=== PATIENT | female | born 1980 | race Caucasian/White ===

== ENCOUNTER 2018-11-13 14:05 | Emergency (ER) | payer SELFPAY ==
[~2018-11-13 14:05] MED LIST: ACE3 PO; ACET-3017 PO; FAMO20TA28 PO; FERR-1 PO; IBU800 PO; IBUP400T13 PO; KET10 PO; LOR1 PO; OLA5 PO; PAR20 PO; PENI-24 PO; PHEN200T32 PO; PREN-67 PO; PROM-110 PO; SULF-198 PO; SUMA25TA26 PO; VENL150C61 PO
[2018-11-13 14:17] VITALS: BP 127/70
--- NOTE | 2018-11-13 14:17 | ER Report ---
History and Physical Time Seen By MD: 14:17 HPI/ROS CHIEF COMPLAINT: Cold symptoms HISTORY OF PRESENT ILLNESS: This is a 38-year-old female presents to the emergency department for flulike symptoms. Patient states that she developed aches, chills, fevers and a mild nonproductive cough yesterday. Gradually getting worse through today. No nausea or vomiting. No diarrhea. No chest pain or shortness of breath. No rashes. REVIEW OF SYSTEMS: Constitutional: As above. Eyes: No discharge. ENT: No sore throat. Cardiovascular: No chest pain, no palpitations. Respiratory: As above. Gastrointestinal: No abdominal pain, no vomiting. Genitourinary: No hematuria. Musculoskeletal: No back pain. Skin: No rashes. Neurological: No headache. Allergies: Coded Allergies: No Known Drug Allergies (Unverified , 10/17/16) Home Meds Active Scripts Oseltamivir Phosphate (TAMIFLU) 75 Mg Cap, 75 MG PO BID for 5 Days, #10 CAP 0 Refills Prov:ANASTASIA STEWART [facility]- 11/13/18 Discontinued Scripts Phenazopyridine Hcl (PHENAZOPYRIDINE HCL) 200 Mg Tablet, 200 MG PO TID PRN for PAIN, #12 TAB Prov:LARISSA FOY [facility] 10/17/16 Sulfamethoxazole/Trimet 800-160 Mg Tab (BACTRIM DS TABLET) 1 Each Tablet, 1 TAB PO Q12H, #14 TAB Prov:LARISSA FOY [facility] 10/17/16 Past Medical/Surgical History The patient has a past medical and surgical history of bipolar disorder, depression, anxiety, self-mutilation, tubal ligation. Reviewed Nurses Notes: Yes Hx Smoking: No Smoking Status: Never Smoker Exposure to Second Hand Smoke?: No Hx Substance Use Disorder: No Hx Alcohol Use: Yes (40 OZ WEEKLY) Constitutional Vital Sign - Last 24 Hours 11/13/18 14:17 Temp 97.1 Pulse 100 Resp 14 B/P (MAP) 127/70 Pulse Ox 94 O2 Delivery Room Air Physical Exam General Appearance: The patient is alert, has no immediate need for airway protection and no signs of toxicity. Eyes: Pupils equal and round no pallor or injection. ENT, Mouth: Mucous membranes are moist. Erythema to the posterior oropharynx. No exudates or tonsillar hypertrophy. Respiratory: There are no retractions, lungs are clear to auscultation. Cardiovascular: Regular rate and rhythm. Gastrointestinal: Abdomen is soft and non tender, no masses, bowel sounds normal. Skin: Warm and dry, no rashes. Musculoskeletal: Neck is supple non tender. Extremities are nontender, nonswollen and have full range of motion. DIFFERENTIAL DIAGNOSIS: After history and physical exam differential diagnosis was considered for viral syndrome, bronchitis, influenza, pneumonia. Medical Decision Making Data Points Laboratory Hematology Test 11/13/18 14:26 Influenza Virus Type A (PCR) Positive (NEGATIVE) Influenza Virus Type B (PCR) Negative (NEGATIVE) Chemistry Test 11/13/18 14:26 Influenza Virus Type A (PCR) Positive (NEGATIVE) Influenza Virus Type B (PCR) Negative (NEGATIVE) ED Course/Re-evaluation ED Course The patient was admitted to room. A history and physical were obtained. Differential diagnoses were considered. Patient was positive for influenza A, a prescription for Tamiflu sent to the patient's pharmacy. Patient was instructed to take ibuprofen or Tylenol as needed for aches and pains. Patient had no other questions or concerns, was in agreement with plan of care and discharged home. Decision to Disposition Date: Nov 13, 2018 Decision to Disposition Time: 15:36 Depart Departure Latest Vital Signs Vital Signs Date Time Temp Pulse Resp B/P (MAP) Pulse Ox O2 Delivery O2 Flow Rate FiO2 11/13/18 14:17 97.1 100 14 127/70 94 Room Air Impression: Primary Impression: Influenza A Condition: Improved Disposition: HOME OR SELF-CARE New Scripts Oseltamivir Phosphate (TAMIFLU) 75 Mg Cap 75 MG PO BID for 5 Days, #10 CAP 0 Refills Prov: ANASTASIA STEWART 11/13/18 Departure Forms: ER Transition Record, Medications Reconciliation, Off Work/School Form, School or Work Release?: Work Number of days to be released: 3 Patient Portal Information Patient Instructions: Influenza (ED) Additional Instructions: Drink plenty of water. Get plenty of rest. Take Tamiflu as prescribed. Follow-up with your primary care provider within one week for reevaluation. Take ibuprofen and Tylenol as needed for aches and pains. Return to ER for any concerns or worsening symptoms. ANASTASIA STEWART-BC Nov 13, 2018 14:17
[2018-11-13] MEDS ORDERED: OSE75 PO (15:40)
== END 2018-11-13 16:04 | disposition home or self-care (01) ==
LOC: ER 15:02
DX: J11.1 Influenza due to unidentified influenza virus with other respiratory manifestations (principal)
CPT/HCPCS: 87502; 99282

== ENCOUNTER 2018-11-22 18:59 | Emergency (ER) | payer SELFPAY ==
[~2018-11-22 18:59] MED LIST changes: +OSE75 PO
--- NOTE | 2018-11-22 19:03 | ER Report ---
History and Physical Time Seen By MD: 19:03 HPI/ROS CHIEF COMPLAINT: Right upper cheek pain HISTORY OF PRESENT ILLNESS: This is a 38-year-old female who presents to the emergency department for right upper cheek pain. Patient states that yesterday she began to develop some pain in her right cheek, increased in intensity today. She has had some nasal discharge, she also states she's had low-grade fevers at home subjectively, she denies nausea or vomiting. No chest pain or shortness of breath. No visual changes. No rashes. No neck stiffness. REVIEW OF SYSTEMS: Constitutional: As above. ENT: As above. Respiratory: No cough, no dyspnea. Cardiovascular: No chest pain, no palpitations. Gastrointestinal: No vomiting, no abdominal pain. Musculoskeletal: No back pain. Allergies: Coded Allergies: No Known Drug Allergies (Unverified , 11/22/18) Home Meds Active Scripts Amoxicillin/Pot Clav 875-125 Mg Tab (AUGMENTIN 875-125 TABLET) 1 Each Tablet, 1 TAB PO Q12H for 10 Days, #20 TAB 0 Refills Prov:ANASTASIA STEWART [facility] 11/22/18 Reported Medications Omeprazole (OMEPRAZOLE) 40 Mg Capsule.dr, 40 MG PO QDAY, CAP 11/22/18 Discontinued Scripts Oseltamivir Phosphate (TAMIFLU) 75 Mg Cap, 75 MG PO BID for 5 Days, #10 CAP 0 Refills Prov:ANASTASIA STEWART [facility] 11/13/18 Past Medical/Surgical History The patient has a past medical and surgical history of bipolar, depression, anxiety, self-mutilation, hysterectomy, tubal ligation. Reviewed Nurses Notes: Yes Hx Smoking: No Smoking Status: Never Smoker Exposure to Second Hand Smoke?: No Hx Substance Use Disorder: No Hx Alcohol Use: Yes (40 OZ WEEKLY) Constitutional Vital Sign - Last 24 Hours 11/22/18 11/22/18 11/22/18 11/22/18 18:59 19:01 19:02 19:14 Temp 99.0 Pulse ??? 114 112 Resp 16 B/P (MAP) 145/82 (103) 145/82 Pulse Ox 93 94 O2 Delivery Room Air 11/22/18 11/22/18 11/22/18 19:29 19:30 19:44 Pulse 109 B/P (MAP) 125/80 (95) Pulse Ox 94 95 Physical Exam General Appearance: The patient is alert, has no immediate need for airway protection and no current signs of toxicity. Eyes: Pupils equal and round no injection. ENT: TMs are pearly farris, no injection or erythema, landmarks noted. Very minimal pain to the left frontal sinus, significant pain to the right frontal and maxillary sinuses. Dentition intact, no gingivitis, erythema or cellulitis noted to the oral mucosa. Erythema and mild inflammation of the inferior turbina te. No petechiae. Respiratory: Chest is non tender, lungs are clear to auscultation. Cardiac: regular rate and rhythm. Gastrointestinal: Abdomen is soft and non tender, no masses, bowel sounds normal. Musculoskeletal: Neck: Neck is supple and non tender. Extremities have full range of motion and are non tender. Skin: No rashes or lesions. DIFFERENTIAL DIAGNOSIS: After history and physical exam differential diagnosis was considered for allergic reaction, dental abscess, strep throat, peritonsillar abscess, viral syndrome, sinusitis, Fercho's angina. Medical Decision Making ED Course/Re-evaluation ED Course The patient was admitted to room. A history and physical were obtained. Differential diagnoses were considered. After examination of the patient's and discussion, patient does have what appears to be a pansinusitis, significant liver painful on the right than the left. Dentition looks intact, gingiva is intact. Patient denies any dental issues recently, no fractured teeth. Patient was given one shot of morphine in the emergency department, Flonase and then sent home with a prescription for Augmentin urine instructed to take ibuprofen or Tylenol as needed for pain. I did encourage her to follow up and establish with a primary care provider within the next 1-2 weeks. Patient was agreeable with this plan of care and discharged home. Decision to Disposition Date: Nov 22, 2018 Decision to Disposition Time: 19:18 Depart Departure Latest Vital Signs Vital Signs Date Time Temp Pulse Resp B/P (MAP) Pulse Ox O2 Delivery O2 Flow Rate FiO2 11/22/18 19:44 95 11/22/18 19:30 125/80 (95) 11/22/18 19:29 109 11/22/18 19:02 99.0 16 Room Air Impression: Primary Impression: Sinusitis Condition: Improved Disposition: HOME OR SELF-CARE Referrals: ZACHARIAH PAYAN JR, MD New Scripts Amoxicillin/Pot Clav 875-125 Mg Tab (AUGMENTIN 875-125 TABLET) 1 Each Tablet 1 TAB PO Q12H for 10 Days, #20 TAB 0 Refills Prov: ANASTASIA STEWART 11/22/18 Patient Instructions: Sinusitis (ED) Additional Instructions: Take the antibiotics as prescribed. Take ibuprofen or Tylenol as needed for pain. Flonase 1 spray in each nostril twice a day for the next 7 days. Drink plenty of water. Get plenty of rest. Please establish with and follow-up with primary care provider within the next 1-2 weeks for reevaluation. Return to ER for any concerns or worsening symptoms. Problem Qualifiers Primary Impression: Sinusitis Sinusitis location: pansinusitis Chronicity: acute Recurrence: not specified as recurrent Qualified Codes: J01.40 - Acute pansinusitis, unspecified ANASTASIA STEWART Nov 22, 2018 19:03
[2018-11-22] MEDS ORDERED: OMEP40CA48 PO (19:05)
[2018-11-22] MEDS ORDERED: AMOX-559 PO (19:20)
[2018-11-22] MEDS ORDERED: MORPHINE 10 MG/ML SYR IM ONE (19:20)
[2018-11-22] MEDS ORDERED: FLUTICASONE PROP 0.05% 16 GM ONE (19:20)
[2018-11-22 19:30] VITALS: BP 125/80
== END 2018-11-22 19:45 | disposition home or self-care (01) ==
LOC: ER 19:18
DX: J01.40 Acute pansinusitis, unspecified (principal)
CPT/HCPCS: 96372; 99283; J2270

== ENCOUNTER 2019-01-22 17:58 | Emergency (ER) | payer SELFPAY ==
--- NOTE | 2019-01-22 18:12 | ER Report ---
History and Physical Time Seen By MD: 18:12 HPI/ROS CHIEF COMPLAINT: Anemia, abnormal lab values HISTORY OF PRESENT ILLNESS: 38-year-old female patient presents to emergency room with complaint of anemia and abnormal lab values. Patient states she was seen at the [facility] earlier today and referred to the emergency room as result of her lab tests. Patient states that she has not felt well for the past several months. She states she had influenza in October. She states she is unable to afford the Tamiflu. She states that after that she had worsening symptoms. She states that she has lost her voice, has been unable to hear out of her right ear and has felt very lightheaded with any type of movement. Patient states that she was taking a lot of Tylenol at the time that she was sick. She states she is taking too extremity strength Tylenol every 4 hours. Patient states that she never really seemed to get better. She states that she was seen last week for her voice and her ear and was started on amoxicillin. She states she took 2 tablets about every 8 hours. She states that she's not had any improvement. As a result of that they did check her lab tests and referred her to the emergency room. REVIEW OF SYSTEMS: Respiratory: No cough, no dyspnea. Cardiovascular: No chest pain, no palpitations. Gastrointestinal: No vomiting, no abdominal pain. Musculoskeletal: No back pain. Allergies: Coded Allergies: No Known Drug Allergies (Unverified , 11/22/18) Home Meds Active Scripts Amoxicillin/Pot Clav 875-125 Mg Tab (AUGMENTIN 875-125 TABLET) 1 Each Tablet, 1 TAB PO Q12H for 10 Days, #20 TAB 0 Refills Prov:ANASTASIA STEWART [facility] 11/22/18 Reported Medications Omeprazole (OMEPRAZOLE) 40 Mg Capsule.dr, 40 MG PO QDAY, CAP 11/22/18 Past Medical/Surgical History Patient has a past medical history of alcohol use, bipolar, depression, anxiety, self-mutilation. Patient has a surgical history of tubal ligation. Reviewed Nurses Notes: Yes Hx Smoking: No Smoking Status: Never Smoker Exposure to Second Hand Smoke?: No Hx Substance Use Disorder: No Hx Alcohol Use: Yes (40 OZ WEEKLY) Constitutional Vital Sign - Last 24 Hours 01/22/19 18:19 Pulse 115 Resp 20 B/P (MAP) 127/82 Pulse Ox 95 O2 Delivery Room Air Physical Exam General Appearance: The patient is alert, has no immediate need for airway protection and no current signs of toxicity. ENT: Tympanic membranes are pearly-farris, auditory canals are patent, mucous memb ranes are moist. Respiratory: Chest is non tender, lungs are clear to auscultation. Cardiac: regular rate and rhythm Gastrointestinal: Abdomen is soft and mildly tender in the epigastric region, no masses, bowel sounds normal. Musculoskeletal: Neck: Neck is supple and non tender. Extremities have full range of motion and are non tender. Skin: No rashes or lesions. DIFFERENTIAL DIAGNOSIS: After history and physical exam differential diagnosis was considered for shock liver, cirrhosis, alcohol abuse, jaundice. Medical Decision Making Data Points Result Diagram: 01/22/19 1838 01/22/19 1838 Laboratory Hematology Test 01/22/19 18:15 01/22/19 18:38 Urine Color Anais Urine Clarity Slightly-cloudy Urine pH 6.0 pH (4.8-9.5) Urine Specific [place] 1.020 Urine Protein 100 mg/dL (NEGATIVE) Urine Glucose (UA) Negative mg/dL (NEGATIVE) Urine Ketones Negative mg/dL (NEGATIVE) Urine Blood Large (NEGATIVE) Urine Nitrite Positive (NEGATIVE) Urine Bilirubin Moderate (NEGATIVE) Urine Urobilinogen 4.0 mg/dL (0.2-1.9) Urine Leukocyte Esterase Negative (NEGATIVE) Urine RBC 731 /HPF (0-2/HPF) Urine WBC 27 /HPF (0-5/HPF) Urine Squamous Epithelial Cells Moderate /LPF (</=FEW) Urine Bacteria Many /HPF (NONE-FEW) Urine Mucus Few /HPF (NONE-FEW) Red Blood Count 3.04 M/uL (4.17-5.56) Mean Corpuscular Volume 78.6 fL (80.0-96.0) Mean Corpuscular Hemoglobin 23.2 pg (26.0-33.0) Mean Corpuscular Hemoglobin Concent 29.6 g/dL (32.0-36.0) Red Cell Distribution Width 25.3 % (11.5-14.5) Mean Platelet Volume 7.9 fL (7.2-11.1) Neutrophils (%) (Auto) 70.5 % (39.4-72.5) Lymphocytes (%) (Auto) 19.4 % (17.6-49.6) Monocytes (%) (Auto) 8.4 % (4.1-12.4) Eosinophils (%) (Auto) 0.8 % (0.4-6.7) Basophils (%) (Auto) 0.9 % (0.3-1.4) Nucleated RBC Relative Count (auto) 0.0 /100WBC Neutrophils # (Auto) 10.5 K/uL (2.0-7.4) Lymphocytes # (Auto) 2.9 K/uL (1.3-3.6) Monocytes # (Auto) 1.3 K/uL (0.3-1.0) Eosinophils # (Auto) 0.1 K/uL (0.0-0.5) Basophils # (Auto) 0.1 K/uL (0.0-0.1) Nucleated RBC Absolute Count (auto) 0.00 K/uL Peripheral Blood Smear Yes Y/N Prothrombin Time 19.7 seconds (12.0-14.4) Prothromb Time International Ratio 1.65 Activated Partial Thromboplast Time 48 seconds (23-35) Sodium Level 135 mmol/L (137-145) Potassium Level 3.3 mmol/L (3.5-5.0) Chloride Level 100 mmol/L (98-107) Carbon Dioxide Level 23 mmol/L (22-31) Blood Urea Nitrogen < 2 mg/dl (7-18) Creatinine 0.50 mg/dl (0.52-1.04) Glomerular Filtration Rate Calc > 60.0 Random Glucose 121 mg/dl (75-110) Calcium Level 7.9 mg/dl (8.4-10.2) Total Bilirubin 7.7 mg/dl (0.2-1.3) Direct Bilirubin 4.9 mg/dl (0.0-0.3) Aspartate Amino Transf (AST/SGOT) 124 U/L (0-35) Alanine Aminotransferase (ALT/SGPT) 14 U/L (0-56) Alkaline Phosphatase 253 U/L (0-126) Lactate Dehydrogenase 350 U/L (0-590) Total Protein 8.0 g/dl (6.3-8.2) Albumin 2.9 g/dl (3.5-5.0) Amylase Level < 30 U/L (0-110) Lipase 27 U/L (23-300) Serum Alcohol < 10 mg/dl Monoscreen Negative (NEGATIVE) Chemistry Test 01/22/19 18:15 01/22/19 18:38 Urine Color Anais Urine Clarity Slightly-cloudy Urine pH 6.0 pH (4.8-9.5) Urine Specific [place] 1.020 Urine Protein 100 mg/dL (NEGATIVE) Urine Glucose (UA) Negative mg/dL (NEGATIVE) Urine Ketones Negative mg/dL (NEGATIVE) Urine Blood Large (NEGATIVE) Urine Nitrite Positive (NEGATIVE) Urine Bilirubin Moderate (NEGATIVE) Urine Urobilinogen 4.0 mg/dL (0.2-1.9) Urine Leukocyte Esterase Negative (NEGATIVE) Urine RBC 731 /HPF (0-2/HPF) Urine WBC 27 /HPF (0-5/HPF) Urine Squamous Epithelial Cells Moderate /LPF (</=FEW) Urine Bacteria Many /HPF (NONE-FEW) Urine Mucus Few /HPF (NONE-FEW) White Blood Count 14.9 k/uL (4.5-11.0) Red Blood Count 3.04 M/uL (4.17-5.56) Hemoglobin 7.1 g/dL (12.0-16.0) Hematocrit 23.9 % (34.0-47.0) Mean Corpuscular Volume 78.6 fL (80.0-96.0) Mean Corpuscular Hemoglobin 23.2 pg (26.0-33.0) Mean Corpuscular Hemoglobin Concent 29.6 g/dL (32.0-36.0) Red Cell Distribution Width 25.3 % (11.5-14.5) Platelet Count 264 K/uL (150-450) Mean Platelet Volume 7.9 fL (7.2-11.1) Neutrophils (%) (Auto) 70.5 % (39.4-72.5) Lymphocytes (%) (Auto) 19.4 % (17.6-49.6) Monocytes (%) (Auto) 8.4 % (4.1-12.4) Eosinophils (%) (Auto) 0.8 % (0.4-6.7) Basophils (%) (Auto) 0.9 % (0.3-1.4) Nucleated RBC Relative Count (auto) 0.0 /100WBC Neutrophils # (Auto) 10.5 K/uL (2.0-7.4) Lymphocytes # (Auto) 2.9 K/uL (1.3-3.6) Monocytes # (Auto) 1.3 K/uL (0.3-1.0) Eosinophils # (Auto) 0.1 K/uL (0.0-0.5) Basophils # (Auto) 0.1 K/uL (0.0-0.1) Nucleated RBC Absolute Count (auto) 0.00 K/uL Peripheral Blood Smear Yes Y/N Prothrombin Time 19.7 seconds (12.0-14.4) Prothromb Time International Ratio 1.65 Activated Partial Thromboplast Time 48 seconds (23-35) Glomerular Filtration Rate Calc > 60.0 Calcium Level 7.9 mg/dl (8.4-10.2) Total Bilirubin 7.7 mg/dl (0.2-1.3) Direct Bilirubin 4.9 mg/dl (0.0-0.3) Aspartate Amino Transf (AST/SGOT) 124 U/L (0-35) Alanine Aminotransferase (ALT/SGPT) 14 U/L (0-56) Alkaline Phosphatase 253 U/L (0-126) Lactate Dehydrogenase 350 U/L (0-590) Total Protein 8.0 g/dl (6.3-8.2) Albumin 2.9 g/dl (3.5-5.0) Amylase Level < 30 U/L (0-110) Lipase 27 U/L (23-300) Serum Alcohol < 10 mg/dl Monoscreen Negative (NEGATIVE) Coagulation Test 01/22/19 18:38 Prothrombin Time 19.7 seconds Prothromb Time International Ratio 1.65 Activated Partial Thromboplast Time 48 seconds Toxicology Test 01/22/19 18:38 Serum Alcohol < 10 mg/dl Urinalysis Test 01/22/19 18:15 Urine Color [place]ais Urine Clarity Slightly-cloudy Urine pH 6.0 pH (4.8-9.5) Urine Specific [place] 1.020 Urine Protein 100 mg/dL (NEGATIVE) Urine Glucose (UA) Negative mg/dL (NEGATIVE) Urine Ketones Negative mg/dL (NEGATIVE) Urine Blood Large (NEGATIVE) Urine Nitrite Positive (NEGATIVE) Urine Bilirubin Moderate (NEGATIVE) Urine Urobilinogen 4.0 mg/dL (0.2-1.9) Urine Leukocyte Esterase Negative (NEGATIVE) Urine RBC 731 /HPF (0-2/HPF) Urine WBC 27 /HPF (0-5/HPF) Urine Squamous Epithelial Cells Moderate /LPF (</=FEW) Urine Bacteria Many /HPF (NONE-FEW) Urine Mucus Few /HPF (NONE-FEW) EKG/Imaging Imaging EXAMINATION: CT abdomen and pelvis with IV contrast HISTORY: Jaundice. Liver disease. TECHNIQUE: Axial CT images of the abdomen and pelvis were obtained with IV contrast, with coronal and sagittal 2D reconstructed images. One of the following dose optimization techniques was utilized in the pe rformance of this exam: Automated exposure control; adjustment of the mA and/or kV according to the patient's size; or use of an iterative reconstruction technique. Specific details can be referenced in the facility's radiology CT exam operational policy. Contrast: 90 mL of IV Isovue-370. COMPARISON: None. FINDINGS: Liver: Marked hepatic steatosis with generalized hepatomegaly. The liver measures 22 cm in length. No evidence of any focal liver lesion. The hepatic veins and portal veins are patent. Gallbladder and bile ducts: Cholelithiasis, with multiple small calcified stones layering in the dependent gallbladder. No CT evidence of cholecystitis. No bile duct dilatation. Spleen: Negative. Normal spleen size, measuring 12.5 cm in length. Pancreas: Negative. Adrenal glands: Negative. Kidneys: No urinary calculi or hydronephrosis. The kidneys enhance normally. There is a 0.9 cm fat density lesion in the mid left kidney compatible with a small renal angiomyolipoma. No right renal mass. Bowel and peritoneum: The small bowel and colon are normal in caliber, without evidence of obstruction or any focal inflammatory process. No bowel wall thickening. Normal appendix. No ascites. No free intraperitoneal air. Pelvic structures: Negative. Lymph node assessment: Negative. Vessels: Negative. Musculoskeletal: Negative. Body wall: Negative. Lung bases: Negative. IMPRESSION: 1. Marked hepatic steatosis with generalized hepatomegaly. 2. No specific CT evidence of cirrhosis or portal hypertension. 3. Cholelithiasis, without evidence of cholecystitis. 4. No acute intra-abdominal findings. Report Dictated By: Adrian Mart MD at 01/22/2019 7:43 PM Report E-Signed By: Adrian Mart MD at 01/22/2019 7:53 PM ED Course/Re-evaluation ED Course Patient is admitted and examined, history and physical were obtained. Differential diagnoses were considered. On examination patient did have jaundice of the eyes, lungs are clear, heart was regular, abdomen soft nontender. Patient did have a hoarse voice. An IV was started, a CBC, CMP, urinalysis, amylase, lipase were obtained. Lab results showed patient did have an elevated alkaline phosphatase of 253, a AST of 124. A PT and PTT were done which showed an INR of 1.65. Patient had an H&H of 7.1 and 23.9. Patient was crossmatched and 2 units of packed red blood cells were ordered. A CT scan of the abdomen and pelvis was done which showed hepatomegaly with hepatic steatosis. I discussed the case with Dr. Grajeda, hospitalist, who recommended checking a direct versus indirect, a Monospot, a LDH. The direct bilirubin was 4.9, Monospot was negative and LDH was 350. He felt the patient would likely need to be evaluated by gastroenterology and recommended transfer to a higher level of care. I discussed the case with Dr. Carvalho, hospitalist at [facility], she agreed to accept the patient with diagnosis of acute liver failure. Patient received both units of packed red blood cells prior to transfer. I did discuss with the patient's agreement with the patient's mother, Nica Lynch , she did state that the patient was a heavy drinker. Patient states that she does drink a couple of alcoholic drinks at night. I discussed the plan with the patient who verbalized understanding and agreement. Decision to Disposition Date: Jan 22, 2019 Decision to Disposition Time: 21:53 Depart Departure Latest Vital Signs Vital Signs Date Time Temp Pulse Resp B/P (MAP) Pulse Ox O2 Delivery O2 Flow Rate FiO2 01/22/19 18:19 115 20 127/82 95 Room Air Impression: Primary Impression: Acute liver failure Additional Impression: Anemia Condition: Condition Unchanged Disposition: [facility]FER TO [facility] Problem Qualifiers Primary Impression: Acute liver failure Hepatic coma status: without hepatic coma Qualified Codes: K72.00 - Acute and subacute hepatic failure without coma Additional Impression: Anemia Anemia type: other cause Other causes of anemia: other cause, not classified Qualified Codes: D64.89 - Other specified anemias [facility]Y [facility] Jan 22, 2019 18:12
[2019-01-22] MEDS ORDERED: NS(*) 0.9% 1000 ML BAG 1,000 ML IV ONE ×2 (18:27→21:30)
[2019-01-22] MEDS ORDERED: IOPAMIDOL 76% 150 ML INFUS BTL 150 ML ONE (18:49)
[2019-01-22 18:53] LABS: PLATELET COUNT, AUTOMATED 264 K/uL (150-450)
[2019-01-22 19:04] LABS: INR 1.65
--- NOTE | 2019-01-22 19:57 | RADIOLOGY IMAGING REPORT ---
FACILITY: [facility] - [place], [place] PATIENT NAME: Jennifer Padilla : 1980 MR: [id number] V: [id number] EXAM DATE: ORDERING PHYSICIAN: LARISSA FOY TECHNOLOGIST: Location: [facility] Patient: Jennifer Padilla : 1980 Visit/Account:[id number] Date of Sevice: 01/22/2019 EXAMINATION: CT abdomen and pelvis with IV contrast HISTORY: Jaundice. Liver disease. TECHNIQUE: Axial CT images of the abdomen and pelvis were obtained with IV contrast, with coronal a nd sagittal 2D reconstructed images. One of the following dose optimization techniques was utilized in the performance of this exam: Autom ated exposure control; adjustment of the mA and/or kV according to the patient's size; or use of an i terative reconstruction technique. Specific details can be referenced in the facility's radiology C T exam operational policy. Contrast: 90 mL of IV Isovue-370. COMPARISON: None. FINDINGS: Liver: Marked hepatic steatosis with generalized hepatomegaly. The liver measures 22 cm in length. N o evidence of any focal liver lesion. The hepatic veins and portal veins are patent. Gallbladder and bile ducts: Cholelithiasis, with multiple small calcified stones layering in the dep endent gallbladder. No CT evidence of cholecystitis. No bile duct dilatation. Spleen: Negative. Normal spleen size, measuring 12.5 cm in length. Pancreas: Negative. Adrenal glands: Negative. Kidneys: No urinary calculi or hydronephrosis. The kidneys enhance normally. There is a 0.9 cm fat d ensity lesion in the mid left kidney compatible with a small renal angiomyolipoma. No right renal mas s. Bowel and peritoneum: The small bowel and colon are normal in caliber, without evidence of obstructi on or any focal inflammatory process. No bowel wall thickening. Normal appendix. No ascites. No free intraperitoneal air. Pelvic structures: Negative. Lymph node assessment: Negative. Vessels: Negative. Musculoskeletal: Negative. Body wall: Negative. Lung bases: Negative. IMPRESSION: 1. Marked hepatic steatosis with generalized hepatomegaly. 2. No specific CT evidence of cirrhosis or portal hypertension. 3. Cholelithiasis, without evidence of cholecystitis. 4. No acute intra-abdominal findings. Report Dictated By: Adrian Mart MD at 01/22/2019 7:43 PM Report E-Signed By: Adrian Mart MD at 01/22/2019 7:53 PM WSN:[email or web address]
[2019-01-22] MEDS ORDERED: LORazepam 2 MG/ML VIAL IVP ONE (21:05)
[2019-01-22 22:02] VITALS: BP 108/58
== END 2019-01-22 23:10 | disposition short-term general hospital (02) ==
LOC: ER 18:29
DX: K72.00 Acute and subacute hepatic failure without coma (principal); D64.89 Other specified anemias; R17 Unspecified jaundice
CPT/HCPCS: 74177; 80320; 81001; 82150; 82248; 83615; 83690; 85025; 85610; 85730; 86308; 86850; 86900; 86901; 86920; 87077; 87088; 87186; 96361; 96374; 99285; J2060; J7030; P9016; Q9967; 82040; 82247; 82310; 82374; 82435; 82565; 82947; 84075; 84132; 84155; 84295; 84450; 84460; 84520

== ENCOUNTER → 2019-01-22 | Outpatient (CLI) | payer SELFPAY ==
[~2019-01-22] MED LIST changes: +AMOX-559 PO; +FERR-53 PO; +FOLI0.4T56 PO; +LORA-1455 PO; +MULT-1335 PO; +OMEP40CA48 PO
== END ==
LOC: AMB 22:57
PROVIDERS: ATTEND Nurse Practitioner
DX: K72.90 Hepatic failure, unspecified without coma (principal)

== ENCOUNTER → 2019-01-22 | Outpatient (CLI) | payer SELFPAY ==
[~2019-01-22] MED LIST changes: -FERR-53 PO; -FOLI0.4T56 PO; -LORA-1455 PO; -MULT-1335 PO
[2019-01-22 14:46] LABS: PLATELET COUNT, AUTOMATED 263 K/uL (150-450)
[2019-01-22 14:57] LABS: INR 1.61
[2019-01-22 15:29] LABS: LDL CHOLESTEROL 48 mg/dl
== END ==
LOC: LAB 14:20
PROVIDERS: ATTEND Nurse Practitioner
DX: Z13.220 Encounter for screening for lipoid disorders (principal); Z13.1 Encounter for screening for diabetes mellitus; R63.4 Abnormal weight loss; R17 Unspecified jaundice; D50.9 Iron deficiency anemia, unspecified; K92.1 Melena
CPT/HCPCS: 36415; 80074; 82040; 82247; 82310; 82374; 82435; 82465; 82565; 82947; 83036; 83540; 83550; 83718; 84075; 84132; 84155; 84295; 84443; 84450; 84460; 84478; 84520; 85025; 85610; 85730

== ENCOUNTER 2019-02-01 21:39 | Emergency (ER) | payer SELFPAY ==
[~2019-02-01 21:39] MED LIST changes: -FERR-53 PO; -FOLI0.4T56 PO; -LORA-1455 PO; -MULT-1335 PO
[2019-02-01 21:57] VITALS: BP 108/72
[2019-02-01] MEDS ORDERED: LORA-1455 PO (22:02)
[2019-02-01] MEDS ORDERED: FERR-53 PO (22:02)
[2019-02-01] MEDS ORDERED: FOLI0.4T56 PO (22:02)
[2019-02-01] MEDS ORDERED: MULT-1335 PO (22:02)
--- NOTE | 2019-02-01 22:07 | ER Report ---
History and Physical Time Seen By MD: 22:06 Hx. of Stated Complaint: PT PRESENTS YELLOW WITH JAUNDICE. HPI/ROS CHIEF COMPLAINT: Jaundice HISTORY OF PRESENT ILLNESS: This is a 38-year-old female. She is here today for worsening jaundice and abnormal blood work. The patient was seen January 22 of this year for anemia and elevated liver enzymes. She was transferred to [place] and had workup with gastroenterology. They did not find any source of bleeding or anemia and felt this might be due to periods and hemorrhoids. They did not find an acute cause for her elevated liver enzymes and jaundice, feeling that this may have been due to recent influenza virus, and felt by watching that this would resolve over time. The patient indicates of the jaundice has never went away, and actually has been worsening since her visit about a week ago. She went to the clinic today to have repeat blood values drawn and her bilirubin was significantly more elevated than previously up to 16.3 total bilirubin. Her potassium and sodium were both a little low as well, and she was told to come to the ER for further evaluation. She denies any recent bleeding either with the stools, urine, nosebleeds, or bruising. No melena. She does have some abdominal distention and diffuse abdominal discomfort which has been worsening over the last few days as well. She denies any fevers or chills. She has no nausea or vomiting. She denies any alcohol use. She has not been using any [id number] medications because at her last visit they told her not to. She has had acid reflux in the past and this does continue to be a problem for her. REVIEW OF SYSTEMS: Constitutional: No fever or chills. Eyes: No vision changes. ENT: No sore throat. No congestion. Cardiovascular: No chest pain. Respiratory: No cough. No shortness of breath. Gastrointestinal: As above. Genitourinary: No dysuria. No hematuria. Musculoskeletal: No back pain. No extremity pain. Skin: No rashes. No bruising. Neurological: No numbness. Generalized weakness but no focal weakness. No headache. Allergies: Coded Allergies: No Known Drug Allergies (Unverified , 11/22/18) Home Meds Reported Medications Multivitamin With Minerals (MULTIPLE VITAMIN) 1 Each Tablet, 1 EACH PO QDAY, TAB 02/01/19 Folic Acid (FOLIC ACID) 0.4 Mg Tablet, 0.4 MG PO QDAY 02/01/19 Ferrous Sulfate (FERROUS SULFATE) 325 Mg Tablet, 325 MG PO QDAY 02/01/19 Lorazepam (ATIVAN) 0.5 Mg Tablet, 0.5 MG PO Q4-6H 02/01/19 Discontinued Reported Medications Omeprazole (OMEPRAZOLE) 40 Mg Capsule.dr, 40 MG PO QDAY, CAP 11/22/18 Discontinued Scripts Amoxicillin/Pot Clav 875-125 Mg Tab (AUGMENTIN 875-125 TABLET) 1 Each Tablet, 1 TAB PO Q12H for 10 Days, #20 TAB 0 Refills Prov:ANASTASIA STEWART [employer] 11/22/18 Past Medical/Surgical History Bipolar/depression/anxiety. Tubal ligation. Reviewed Nurses Notes: Yes Hx Smoking: No Smoking Status: Never Smoker Exposure to Second Hand Smoke?: No Hx Substance Use Disorder: No Hx Alcohol Use: Yes (40 OZ WEEKLY) Constitutional Vital Sign - Last 24 Hours 02/01/19 02/01/19 02/01/19 02/01/19 21:57 22:39 23:09 23:24 Temp 98.4 Pulse 97 97 96 Resp 16 B/P (MAP) 108/72 Pulse Ox 93 89 92 88 O2 Delivery Room Air 02/02/19 02/02/19 02/02/19 02/02/19 00:35 01:05 01:20 01:35 Pulse 98 99 99 Pulse Ox 87 89 89 89 02/02/19 02/02/19 02/02/19 02/02/19 01:50 02:05 02:05 02:35 Pulse 97 96 Pulse Ox 86 96 91 O2 Flow Rate 2.0 02/02/19 02/02/19 02:50 02:55 Pulse 96 96 Pulse Ox 92 91 Intake and Output 02/01/19 02/01/19 02/02/19 14:59 22:59 06:59 Intake Total 1100 ml Balance 1100 ml Physical Exam General Appearance: The patient is alert. She is very anxious, tearful. Eyes: Pupils are equal, round. Reactive to light. She does have significant scleral icterus. Extraocular movements are intact. ENT: Mucous membranes are moist. Normal oral mucosa. Posterior oropharynx is normal. Neck: Supple and non tender. Respiratory: Lungs are clear to auscultation. Cardiovascular: Regular rate and rhythm. No murmurs, gallops or rubs. Normal capillary refill. Trace edema bilateral ankles. Gastrointestinal: Abdomen is soft, diffuse discomfort but no focal tenderness. Mild distention. I cannot appreciate a fluid wave. She has guarding but no rebound. No masses or organomegaly. Normal active bowel sounds. No costovertebral angle tenderness with percussion. Neurological: Alert and oriented x3. Cranial nerves II through XII show no acute deficits on my exam. No focal neurologic deficits in the extremities. Skin: Warm and dry. No rashes. Diffuse jaundice Musculoskeletal: Extremities are nontender. No tenderness in palpation of the cervical, thoracic and lumbar spine. DIFFERENTIAL DIAGNOSIS: After history and physical exam, differential diagnosis was considered for a patient with worsening liver enzymes, scleral icterus, skin jaundice, with prior history of as yet unspecified liver problem that appears to be worsening. She had significant anemia at that time and a reason for the anemia was never completely found, she denies any current signs of bleeding or bruising on history at this time. There is some abdominal distention and so I'm worried about possibility of ascites in the possibility of spontaneous bacterial peritonitis but she is afebrile at this time so this would be less likely. Medical Decision Making Data Points Result Diagram: 02/01/19215602/01/192156 Laboratory Hematology Test 02/01/19 21:57 Red Blood Count 4.10 M/uL (4.17-5.56) Mean Corpuscular Volume 82.8 fL (80.0-96.0) Mean Corpuscular Hemoglobin 25.9 pg (26.0-33.0) Mean Corpuscular Hemoglobin Concent 31.4 g/dL (32.0-36.0) Red Cell Distribution Width 30.4 % (11.5-14.5) Mean Platelet Volume 7.3 fL (7.2-11.1) Neutrophils (%) (Auto) % (39.4-72.5) Lymphocytes (%) (Auto) % (17.6-49.6) Monocytes (%) (Auto) % (4.1-12.4) Eosinophils (%) (Auto) % (0.4-6.7) Basophils (%) (Auto) % (0.3-1.4) Nucleated RBC Relative Count (auto) /100WBC Neutrophils # (Auto) K/uL (2.0-7.4) Lymphocytes # (Auto) K/uL (1.3-3.6) Monocytes # (Auto) K/uL (0.3-1.0) Eosinophils # (Auto) K/uL (0.0-0.5) Basophils # (Auto) K/uL (0.0-0.1) Nucleated RBC Absolute Count (auto) K/uL Neutrophils % (Manual) 79 % (39.4-72.5) Lymphocytes % (Manual) 13 % (17.6-49.6) Monocytes % (Manual) 7 % (4.1-12.4) Eosinophils % (Manual) 0 % (0.4-6.7) Basophils % (Manual) 1 % (0.3-1.4) Anisocytosis 3+ Target Cells 2+ Peripheral Blood Smear Yes Y/N Prothrombin Time 21.8 seconds (12.0-14.4) Prothromb Time International Ratio 1.87 Activated Partial Thromboplast Time 60 seconds (23-35) Sodium Level 132 mmol/L (137-145) Potassium Level 2.7 mmol/L (3.5-5.0) Chloride Level 95 mmol/L (98-107) Carbon Dioxide Level 29 mmol/L (22-31) Blood Urea Nitrogen < 2 mg/dl (7-18) Creatinine 0.60 mg/dl (0.52-1.04) Glomerular Filtration Rate Calc > 60.0 Random Glucose 95 mg/dl (75-110) Calcium Level 7.9 mg/dl (8.4-10.2) Total Bilirubin 18.2 mg/dl (0.2-1.3) Direct Bilirubin 14.9 mg/dl (0.0-0.3) Aspartate Amino Transf (AST/SGOT) 143 U/L (0-35) Alanine Aminotransferase (ALT/SGPT) 15 U/L (0-56) Alkaline Phosphatase 237 U/L (0-126) Total Protein 8.9 g/dl (6.3-8.2) Albumin 3.0 g/dl (3.5-5.0) Amylase Level 39 U/L (0-110) Lipase 31 U/L (23-300) Chemistry Test 02/01/19 21:57 White Blood Count 16.5 k/uL (4.5-11.0) Red Blood Count 4.10 M/uL (4.17-5.56) Hemoglobin 10.6 g/dL (12.0-16.0) Hematocrit 33.9 % (34.0-47.0) Mean Corpuscular Volume 82.8 fL (80.0-96.0) Mean Corpuscular Hemoglobin 25.9 pg (26.0-33.0) Mean Corpuscular Hemoglobin Concent 31.4 g/dL (32.0-36.0) Red Cell Distribution Width 30.4 % (11.5-14.5) Platelet Count 458 K/uL (150-450) Mean Platelet Volume 7.3 fL (7.2-11.1) Neutrophils (%) (Auto) % (39.4-72.5) Lymphocytes (%) (Auto) % (17.6-49.6) Monocytes (%) (Auto) % (4.1-12.4) Eosinophils (%) (Auto) % (0.4-6.7) Basophils (%) (Auto) % (0.3-1.4) Nucleated RBC Relative Count (auto) /100WBC Neutrophils # (Auto) K/uL (2.0-7.4) Lymphocytes # (Auto) K/uL (1.3-3.6) Monocytes # (Auto) K/uL (0.3-1.0) Eosinophils # (Auto) K/uL (0.0-0.5) Basophils # (Auto) K/uL (0.0-0.1) Nucleated RBC Absolute Count (auto) K/uL Neutrophils % (Manual) 79 % (39.4-72.5) Lymphocytes % (Manual) 13 % (17.6-49.6) Monocytes % (Manual) 7 % (4.1-12.4) Eosinophils % (Manual) 0 % (0.4-6.7) Basophils % (Manual) 1 % (0.3-1.4) Anisocytosis 3+ Target Cells 2+ Peripheral Blood Smear Yes Y/N Prothrombin Time 21.8 seconds (12.0-14.4) Prothromb Time International Ratio 1.87 Activated Partial Thromboplast Time 60 seconds (23-35) Glomerular Filtration Rate Calc > 60.0 Calcium Level 7.9 mg/dl (8.4-10.2) Total Bilirubin 18.2 mg/dl (0.2-1.3) Direct Bilirubin 14.9 mg/dl (0.0-0.3) Aspartate Amino Transf (AST/SGOT) 143 U/L (0-35) Alanine Aminotransferase (ALT/SGPT) 15 U/L (0-56) Alkaline Phosphatase 237 U/L (0-126) Total Protein 8.9 g/dl (6.3-8.2) Albumin 3.0 g/dl (3.5-5.0) Amylase Level 39 U/L (0-110) Lipase 31 U/L (23-300) Coagulation Test 02/01/19 21:57 Prothrombin Time 21.8 seconds Prothromb Time International Ratio 1.87 Activated Partial Thromboplast Time 60 seconds EKG/Imaging Imaging COMPUTED TOMOGRAPHY ABDOMEN AND PELVIS WITH INTRAVENOUS CONTRAST DATE OF EXAM: 02/01/2019 10:49 PM INDICATION: Diffuse abdominal pain, distention, elevated bilirubin. COMPARISON: CT abdomen and pelvis 01/22/2019. TECHNIQUE: Contrast enhanced abdomen and pelvis CT performed during the injection of 75 ml of Isovue 370. Sagittal and coronal reconstructions were performed. One of the following dose optimization techniques was utilized in the performance of this exam: Automated exposure control; adjustment of the mA and/or kV according to the patient's size; or use of an iterative reconstruction technique. Specific details can be referenced in the facility's radiology CT exam operational policy. FINDINGS: Lung bases: Bibasilar scarring/atelectasis. Calcified granuloma in the right lower lobe. Micronodule along the left major fissure likely does not require follow-up. Liver and hepatic vasculature: The liver is enlarged and diffusely hypoattenuating. No suspicious focal lesion or acute abnormality. There are mildly prominent collateral veins in the upper abdomen. Gallbladder and bile ducts: Numerous small calculi in the fundus of the gallbladder. No apparent acute inflammation. Spleen: Normal. Pancreas: Normal. Adrenals: Normal. Kidneys, ureters and bladder: No acute abnormality or suspicious lesion. Retroperitoneum and aorta: Nonaneurysmal aorta with minimal atherosclerosis. No adenopathy. GI tract, mesentery and peritoneum: No obstruction. No pneumatosis or pneumoperitoneum. Normal appendix. Uterus and adnexa: Uterus and ovaries are grossly normal in appearance. Small volume of free fluid in the pelvis. Bones and soft tissues: Moderate diffuse body wall edema. No suspicious lesion. IMPRESSION: 1. Hepatomegaly and steatosis as previously described. There are also somewhat prominent collateral veins in the upper abdomen which could indicate a degree of portal hypertension. 2. Small volume of free fluid in the pelvis may be reactive, physiologic, or related to overall fluid status. 3. Moderate body wall edema. Report Dictated By: Braden Philip MD at 02/01/2019 11:07 PM EXAMINATION: LIMITED ABDOMINAL ULTRASOUND DATE: 02/01/2019 10:20 PM INDICATION: Jaundice, abdominal pain and distension. TECHNIQUE: Chaidez scale, color and pulsed Doppler ultrasound images of the right upper quadrant were obtained. COMPARISON: Same-day CT abdomen and pelvis. FINDINGS: Pancreas: The pancreas is suboptimally visualized in the tail. There is no significant abnormality in the visualized portion. Aorta and IVC: The imaged abdominal aorta and IVC are patent. Liver: The liver shows heterogeneously increased parenchymal echogenicity with coarsened echotexture. The right hepatic lobe measures 25 cm craniocaudal, which is at least moderately enlarged. There is no definite focal lesion in the liver. The main portal vein is patent with hepatopedal flow. Bile ducts: The intrahepatic bile ducts are not dilated. The common bile duct measures 3 mm in diameter, which is normal. Gallbladder: The gall bladder is partially distended and contains multiple po steriorly shadowing mobile calculi and sludge. Gallbladder wall is borderline thickened. No pericholecystic fluid. Reported positive sonographic Rainey's sign. Kidney: The right kidney measures 10.5 x 3.4 x 5.8 cm. The parenchymal echogenicity and thickness appear within normal range. No focal lesion is demonstrated. No hydronephrosis. No ascites. IMPRESSION: 1. Enlarged and heterogeneously hyperechoic liver suspicious for steatosis. A degree of fibrosis/early cirrhosis not excluded given possible portal hypertension seen on CT. 2. Cholelithiasis and biliary sludge in the gallbladder lumen with borderline thickened gallbladder wall and reported positive sonographic Rainey's sign. Wall thickening is nonspecific in the setting of liver disease. If there is suspicion for cholecystitis, HIDA scan could be performed. Report Dictated By: Braden Philip MD at 02/02/2019 12:42 AM ED Course/Re-evaluation Clinical Indication for ER IV: Hydration, IV Access ED Course Evaluation showed elevated bilirubin, with elevated total direct. Also abnormalities of the sodium and potassium, both being low. White count elevated. Imaging done as noted above with hepatic steatosis and let enlargement. Gallbladder does have some stones and sludge, but no signs of cholecystitis and bile duct appears unenlarged. Discussed the case with the hospitalist at [facility] who saw the patient at her last hospitalization. He discussed the case with Gastroenterology. They recommended that the bilirubin level was not more elevated that what would be expected at this time and this can take time to decrease. They recommended more time and monitoring with labs. We replaced the potassium tonight with some IV fluids. Decision to Disposition Date: February 02, 2019 Decision to Disposition Time: 02:44 Depart Departure Latest Vital Signs Vital Signs Date Time Temp Pulse Resp B/P (MAP) Pulse Ox O2 Delivery O2 Flow Rate FiO2 02/02/19 02:55 96 91 02/02/19 02:05 2.0 02/01/19 21:57 98.4 16 108/72 Room Air Impression: Primary Impression: Hepatic steatosis Condition: Improved Disposition: HOME OR SELF-CARE Additional Instructions: Your liver tests showed an elevated bilirubin. This is due to backup from the liver. The Gastrointestinal specialists in [place] who took care of you last month were contacted. The level of bilirubin, while more elevated, is within the levels that they would expect at this time. The levels can sometimes rise before coming down and can take weeks. They recommended continuing to watch things and repeat testing next week. If you have fevers/chills, or severe abdominal pain, then you should return to the ER. If the bilirubin continues to rise and does not resolve over the next 4 weeks or so, then further evaluation with the liver specialists in [place] would be recomm ended. Please follow-up with your primary care providers for further testing. GI recommends testing again this Tuesday or Tuesday. Continue with no alcohol and no over the counter medicines such as Ibuprofen or Tylenol. SHANNAN CARDOZA MD February 01, 2019 22:07
[2019-02-01] MEDS ORDERED: IOPAMIDOL 76% 150 ML INFUS BTL 0 ML ONE (22:37)
[2019-02-01] MEDS ORDERED: IOPAMIDOL 76% 150 ML INFUS BTL 150 ML ONE (22:38)
[2019-02-01 22:40] LABS: INR 1.87
[2019-02-01 23:23] LABS: PLATELET COUNT, AUTOMATED 458 K/uL (150-450)
--- NOTE | 2019-02-01 23:31 | RADIOLOGY IMAGING REPORT ---
FACILITY: [facility] - [place] PATIENT NAME: Jennifer Padilla : 1980 MR: [id number] V: [id number] EXAM DATE: ORDERING PHYSICIAN: SHANNAN CARDOZA TECHNOLOGIST: Location: [facility] Patient: Jennifer Padilla : 1980 Visit/Account:[id number] Date of Sevice: 02/01/2019 COMPUTED TOMOGRAPHY ABDOMEN AND PELVIS WITH INTRAVENOUS CONTRAST DATE OF EXAM: 02/01/2019 10:49 PM INDICATION: Diffuse abdominal pain, distention, elevated bilirubin. COMPARISON: CT abdomen and pelvis 01/22/2019. TECHNIQUE: Contrast enhanced abdomen and pelvis CT performed during the injection of 75 ml of Isovue 370. Sagittal and coronal reconstructions were performed. One of the following dose optimization te chniques was utilized in the performance of this exam: Automated exposure control; adjustment of the mA and/or kV according to the patient's size; or use of an iterative reconstruction technique. Spec [facility] details can be referenced in the facility's radiology CT exam operational policy. FINDINGS: Lung bases: Bibasilar scarring/atelectasis. Calcified granuloma in the right lower lobe. Micronodul e along the left major fissure likely does not require follow-up. Liver and hepatic vasculature: The liver is enlarged and diffusely hypoattenuating. No suspicious f ocal lesion or acute abnormality. There are mildly prominent collateral veins in the upper abdomen. Gallbladder and bile ducts: Numerous small calculi in the fundus of the gallbladder. No apparent ac robinson inflammation. Spleen: Normal. Pancreas: Normal. Adrenals: Normal. Kidneys, ureters and bladder: No acute abnormality or suspicious lesion. Retroperitoneum and aorta: Nonaneurysmal aorta with minimal atherosclerosis. No adenopathy. GI tract, mesentery and peritoneum: No obstruction. No pneumatosis or pneumoperitoneum. Normal vikash endix. Uterus and adnexa: Uterus and ovaries are grossly normal in appearance. Small volume of free fluid i n the pelvis. Bones and soft tissues: Moderate diffuse body wall edema. No suspicious lesion. IMPRESSION: 1. Hepatomegaly and steatosis as previously described. There are also somewhat prominent collateral veins in the upper abdomen which could indicate a degree of portal hypertension. 2. Small volume of free fluid in the pelvis may be reactive, physiologic, or related to overall flui d status. 3. Moderate body wall edema. Report Dictated By: Braden Philip MD at 02/01/2019 11:07 PM Report E-Signed By: Braden Philip MD at 02/01/2019 11:27 PM WSN:[id number]
[2019-02-02] MEDS ORDERED: KCL (*) 20 MEQ/100 ML PREMIX 100 ML IV ONE (00:45)
[2019-02-02] MEDS ORDERED: NS(*) 0.9% 1000 ML BAG 1,000 ML IV ONE (00:45)
--- NOTE | 2019-02-02 00:51 | RADIOLOGY IMAGING REPORT ---
FACILITY: [facility] - [place] PATIENT NAME: Jennifer Padilla : 1980 MR: [id number] V: [id number] EXAM DATE: ORDERING PHYSICIAN: SHANNAN CARDOZA TECHNOLOGIST: Location: [facility] Patient: Jennifer Padilla : 1980 Visit/Account:[id number] Date of Sevice: 02/01/2019 EXAMINATION: LIMITED ABDOMINAL ULTRASOUND DATE: 02/01/2019 10:20 PM INDICATION: Jaundice, abdominal pain and distension. TECHNIQUE: Chaidez scale, color and pulsed Doppler ultrasound images of the right upper quadrant were ob tained. COMPARISON: Same-day CT abdomen and pelvis. FINDINGS: Pancreas: The pancreas is suboptimally visualized in the tail. There is no significant abnormality in the visualized portion. Aorta and IVC: The imaged abdominal aorta and IVC are patent. Liver: The liver shows heterogeneously increased parenchymal echogenicity with coarsened echotexture. The right hepatic lobe measures 25 cm craniocaudal, which is at least moderately enlarged. There is no definite focal lesion in the liver. The main portal vein is patent with hepatopedal flow. Bile ducts: The intrahepatic bile ducts are not dilated. The common bile duct measures 3 mm in diamet er, which is normal. Gallbladder: The gall bladder is partially distended and contains multiple posteriorly shadowing mobi le calculi and sludge. Gallbladder wall is borderline thickened. No pericholecystic fluid. Reporte d positive sonographic Rainey's sign. Kidney: The right kidney measures 10.5 x 3.4 x 5.8 cm. The parenchymal echogenicity and thickness vikash ear within normal range. No focal lesion is demonstrated. No hydronephrosis. No ascites. IMPRESSION: 1. Enlarged and heterogeneously hyperechoic liver suspicious for steatosis. A degree of fibrosis/ea rly cirrhosis not excluded given possible portal hypertension seen on CT. 2. Cholelithiasis and biliary sludge in the gallbladder lumen with borderline thickened gallbladder wall and reported positive sonographic Rainey's sign. Wall thickening is nonspecific in the setting of liver disease. If there is suspicion for cholecystitis, HIDA scan could be performed. Report Dictated By: Braden Philip MD at 02/02/2019 12:42 AM Report E-Signed By: Braden Philip MD at 02/02/2019 12:46 AM WSN:[id number]
[2019-02-02] MEDS ORDERED: LORazepam 0.5 MG TAB PO ONE (00:55)
== END 2019-02-02 03:18 | disposition home or self-care (01) ==
LOC: ER 22:17
DX: K76.0 Fatty (change of) liver, not elsewhere classified (principal); K80.80 Other cholelithiasis without obstruction
CPT/HCPCS: 74177; 76705; 82150; 82248; 83690; 85025; 85610; 85730; 96365; 96366; 99284; J3480; J7030; Q9967; 82040; 82247; 82310; 82374; 82435; 82565; 82947; 84075; 84132; 84155; 84295; 84450; 84460; 84520

== ENCOUNTER → 2019-02-01 | Outpatient (CLI) | payer SELFPAY ==
[~2019-02-01] MED LIST changes: +FERR-53 PO; +FOLI0.4T56 PO; +LORA-1455 PO; +MULT-1335 PO
[2019-02-01 19:02] LABS: INR 1.94
== END ==
LOC: LAB 18:36
PROVIDERS: ATTEND Nurse Practitioner
DX: K70.10 Alcoholic hepatitis without ascites (principal); D50.9 Iron deficiency anemia, unspecified; R17 Unspecified jaundice
CPT/HCPCS: 36415; 82040; 82247; 82310; 82374; 82435; 82565; 82947; 84075; 84132; 84155; 84295; 84450; 84460; 84520; 85610; 85730

== ENCOUNTER → 2019-02-05 | Outpatient (CLI) | payer SELFPAY ==
[~2019-02-05] MED LIST changes: +FERR-53 PO; +FOLI0.4T56 PO; +LORA-1455 PO; +MULT-1335 PO
[2019-02-05 19:44] LABS: PLATELET COUNT, AUTOMATED 423 K/uL (150-450)
[2019-02-05 19:59] LABS: INR 2.11
== END ==
LOC: LAB 19:12
PROVIDERS: ATTEND Nurse Practitioner
DX: K70.10 Alcoholic hepatitis without ascites (principal); R17 Unspecified jaundice; D50.9 Iron deficiency anemia, unspecified
CPT/HCPCS: 36415; 82040; 82247; 82310; 82374; 82435; 82565; 82947; 84075; 84132; 84155; 84295; 84450; 84460; 84520; 85025; 85610; 85730

== ENCOUNTER → 2019-02-06 | Outpatient (CLI) | payer SELFPAY | LOC: LAB 19:01 | PROVIDERS: ATTEND Nurse Practitioner | DX: K70.10 Alcoholic hepatitis without ascites (principal); R17 Unspecified jaundice | CPT/HCPCS: 36415; 82248 ==

== ENCOUNTER 2019-02-12 09:00 | Outpatient (RCR) | payer SELFPAY ==
[2019-02-12] MEDS ORDERED: GADOBENATE 529MG/1ML 15ML VIAL IVP ONE (09:29)
[2019-02-12] MEDS ORDERED: NS(*) 0.9% 50 ML BAG 50 ML ONE (09:29)
--- NOTE | 2019-02-12 17:18 | RADIOLOGY IMAGING REPORT ---
FACILITY: [facility] - [place] PATIENT NAME: Jennifer Padilla : 1980 MR: [id number] V: [id number] EXAM DATE: ORDERING PHYSICIAN: VISHAL CAPUTO TECHNOLOGIST: Location: [facility] - [place] Patient: Jennifer Padilla : 1980 Visit/Account:[id number] Date of Sevice: 02/12/2019 Nonspecific splenic megaly. MR ABDOMEN MRCP W & W/O CONTRAST HISTORY: Worsening jaundice with elevated bilirubin. Hepatic steatosis. Right upper quadrant pain. TECHNIQUE: Multiplanar multisequence magnetic resonance imaging of the abdomen without and with intr avenous contrast. Magnetic resonance cholangiopancreatography (MRCP) was also performed. CONTRAST: 15 mL MultiHance IV contrast COMPARISON: Ultrasound dated February 01, 2019. CT dated February 01, 2019. FINDINGS: Visualized lung bases: Trace bilateral pleural effusions with associated atelectasis. Liver: Enlarged measuring 18 cm at the midclavicular line. Moderate heterogeneous hepatic steatosis . No significant lobulated contour or other morphologic changes suggestive of cirrhosis. No visuali zed hepatic lesions. Gallbladder: Gallbladder is decompressed. There is diffuse gallbladder wall edema/thickening. No de finitive cholelithiasis. Bile ducts: Suboptimal visualization secondary to motion artifact however the common bile duct appear s grossly normal in size without definitive choledocholithiasis. Spleen: Mildly enlarged measuring 13.7 cm in diameter. Adrenals: Negative. Pancreas: Negative. Kidneys/: Subcentimeter angiomyolipoma within the left kidney. Otherwise negative. Visualized GI: Negative. Vessels/spaces/nodes: Small volume perihepatic free fluid. Bones/soft tissues: Moderate generalized anasarca. IMPRESSION: 1. No acute findings. No visualized biliary ductal dilatation. 2. Borderline hepatomegaly with moderate heterogeneous hepatic steatosis. No morphologic changes of cirrhosis or evidence for hepatoma. 3. Findings possibly related to fluid overload including small volume ascites, trace bilateral pleur al effusions, and generalized anasarca. 4. Borderline splenomegaly. 5. Nonspecific gallbladder wall thickening/edema within a decompressed gallbladder. Findings are fa vored systemic, possibly related to fluid overload. Report Dictated By: Colby Ling MD at 02/12/2019 5:06 PM Report E-Signed By: Colby Ling MD at 02/12/2019 5:14 PM [id number]
[2019-02-14 10:59] LABS: PLATELET COUNT, AUTOMATED 399 K/uL (150-450)
[2019-02-14 11:08] LABS: INR 2.17
--- NOTE | 2019-02-14 13:13 | RADIOLOGY IMAGING REPORT ---
FACILITY: [facility] - [place] PATIENT NAME: Jennifer Padilla : 1980 MR: [id number] V: [id number] EXAM DATE: ORDERING PHYSICIAN: VISHAL CAPUTO TECHNOLOGIST: Location: [facility] Patient: Jennifer Padilla : 1980 Visit/Account:[id number] Date of Sevice: 02/14/2019 Study: NM HIDA SCAN Indication: Jaundice Comparison study: None available Findings: 5.9 mCi of technetium 99m labeled mebrofenin was injected intravenously. Sequential images were obtained of the right upper quadrant for a total of 176 minutes. The examination demonstrates the presence of persistent cardiac radiotracer activity. This is indicat mackenzie of poor uptake of the radiotracer due to hepatic dysfunction. The gallbladder is not visualized during this exam. Radiotracer is seen within the small bowel after 21 minutes. This is within normal limits of normal. IMPRESSION: Nonvisualization of the gallbladder consistent with obstruction of the cystic duct. Poor uptake of radiotracer from the blood pool. This is consistent with hepatic dysfunction. Report Dictated By: Wilfrido Contreras at 02/14/2019 1:02 PM Report E-Signed By: Wilfrido Contreras at 02/14/2019 1:09 PM WSN:[id number]
== END 2019-02-14 18:00 | disposition home or self-care (01) ==
LOC: RAD 09:00 → EDSTATUS 13:40 → RAD 02-14 18:00
PROVIDERS: ATTEND Nurse Practitioner
DX: K83.09 Other cholangitis (principal); K70.10 Alcoholic hepatitis without ascites; E87.6 Hypokalemia; D68.9 Coagulation defect, unspecified
CPT/HCPCS: 36415; 74183; 78226; 82140; 82248; 83735; 85025; 85610; 85730; A9537; A9577; J7050; 82040; 82247; 82310; 82374; 82435; 82565; 82947; 84075; 84132; 84155; 84295; 84450; 84460; 84520

== ENCOUNTER → 2019-04-24 | Outpatient (CLI) | payer SELFPAY ==
[2019-04-24 15:47] LABS: PLATELET COUNT, AUTOMATED 259 K/uL (150-450)
[2019-04-24 15:48] LABS: INR 1.73
== END ==
LOC: LAB 15:10
PROVIDERS: ATTEND Nurse Practitioner
DX: K70.10 Alcoholic hepatitis without ascites (principal); E87.6 Hypokalemia; R63.4 Abnormal weight loss; R79.89 Other specified abnormal findings of blood chemistry; D72.829 Elevated white blood cell count, unspecified; D50.9 Iron deficiency anemia, unspecified; D68.9 Coagulation defect, unspecified
CPT/HCPCS: 36415; 80305; 82040; 82140; 82247; 82310; 82374; 82435; 82565; 82947; 84075; 84132; 84155; 84295; 84450; 84460; 84520; 85025; 85610; 85730; 87088